=== PATIENT | female | born 1950 | race Caucasian/White ===

== ENCOUNTER 2023-02-25 11:44 | Outpatient (CLI) | payer MEDICARE, BC | END 2023-02-25 23:59 | disposition home or self-care (01) | LOC: RAD 11:44 | PROVIDERS: ATTEND Student in an Organized Health Care Education/Training Program | DX: G31.84 Mild cognitive impairment of uncertain or unknown etiology (principal); R42 Dizziness and giddiness; J34.89 Other specified disorders of nose and nasal sinuses | CPT/HCPCS: 70551 ==